=== PATIENT | female | born 1985 | race Caucasian/White ===

== ENCOUNTER → 2023-09-27 | Outpatient (CLI) | payer BC ==
[~2023-09-27] MED LIST: IBUP200C25 PO; MECL-86 PO; XANA0.25 PO
[2023-09-27 11:35] VITALS: TEMP 97.8
[2023-09-27 11:54] LABS: HEMATOCRIT 37.9 % (36.0-47.0); HEMOGLOBIN 12.9 g/dl (12.0-15.5); MEAN CORPUSCULAR HEMOGLOBIN 32.3 pg (27.0-33.0); PLATELET COUNT, AUTOMATED 279 10^3/uL (150-450); RED BLOOD COUNT 3.99 10^6/uL (4.00-5.40); WHITE BLOOD COUNT 7.5 10^3/uL (4.0-10.0)
[2023-09-27 12:13] LABS: INR 1.08; PROTHROMBIN TIME 13.7 SECONDS (12.5-14.5)
[2023-09-27 14:29] VITALS: BP 105/61; O2SAT 98
[2023-09-27 14:33] LABS: APPEARANCE, CSF CLEAR (CLEAR); COLOR, CSF COLORLESS (COLORLESS); CSF TUBE# CELL CNT TUBE 1
[2023-09-27 15:09] LABS: CSF TUBE# TP TUBE 1; TOTAL PROTEIN,CSF 35.6 MG/DL (15-45)
[2023-09-27 15:12] LABS: CSF TUBE# GLU TUBE 1
== END ==
LOC: M IRPRO 11:16
PROVIDERS: ATTEND Psychiatry & Neurology Neurology
DX: G35 Multiple sclerosis (principal)

== ENCOUNTER 2023-10-21 19:24 | Emergency (ER) | payer BC ==
[~2023-10-21] VITALS: Ht 165.1 cm; Wt 88.9 kg
[2023-10-21 19:25] VITALS: BP 140/67; TEMP 97.9; O2SAT 100
== END 2023-10-21 21:23 | disposition left against medical advice (07) ==
LOC: M ED 19:27
DX: Z53.21 Procedure and treatment not carried out due to patient leaving prior to being seen by health care provider (principal)